=== PATIENT | male | born 2000 | race Caucasian/White ===

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

== ENCOUNTER 2022-04-25 13:02 | Day surgery (SDC) | payer OTHER ==
[~2022-04-25] VITALS: Ht 177.8 cm; Wt 62.7 kg
[2022-04-25 14:11] VITALS: BP 125/97; PULSE 68; TEMP 97.3
[2022-04-25 15:55] VITALS: BP 109/50; PULSE 77
--- NOTE | 2022-04-25 16:12 | NUR ---
1500 PT RETURNED TO BAY 3 VIA CART. TRANSFERRED TO CHAIR WITH RN ASSIST. ALERT AND ORIENTED. MONITORS ATTACHED, INTERVALS AND ALARMS SET. VSS. PT DENIES PAIN OR NAUSEA. FOOD AND DRINK PROVIDED. CALL LIGHT IN REACH. 1515 VSS. PT DENIES DISCOMFORT. TOLERATING FOOD AND DRINK WELL. 1530 VSS. PT DENIES DISCOMFORT. REVIEWED DISCHARGE INSTRUCTIONS AND EDUCATION MATERIAL, ANSWERED ALL QUESTIONS. IV REMOVED WITHOUT COMPLICATIONS. PT ALLOWED TO DRESS. 1550 TRANSFERRED PT VIA WHEELCHAIR TO PERSONAL VEHICLE TO BE DRIVEN HOME BY FATHER.
== END 2022-04-25 15:55 | disposition home or self-care (01) ==
LOC: SDCO 13:02
DX: K21.00 Gastro-esophageal reflux disease with esophagitis, without bleeding (principal); K29.30 Chronic superficial gastritis without bleeding; R19.7 Diarrhea, unspecified; R15.2 Fecal urgency; R19.5 Other fecal abnormalities; Z79.899 Other long term (current) drug therapy
CPT/HCPCS: J2704; J7030

== ENCOUNTER 2023-11-06 07:43 | Day surgery (SDC) | payer OTHER ==
[~2023-11-06] VITALS: Ht 180.3 cm; Wt 65.4 kg
[~2023-11-06 07:43] MED LIST: LR 1,000 ML IV SCH; Ondansetron 4 MG/2 ML VIAL IV PRN
[2023-11-06] MEDS ORDERED: PRINIVIL5 MG PO (08:03)
[2023-11-06] MEDS ORDERED: PROTONIX 40MG T40 MG PO (08:03)
[2023-11-06] MEDS ORDERED: SINGULAIR 110 MG/TAB PO (08:04)
[2023-11-06 08:37] VITALS: BP 124/82; PULSE 74; TEMP 97.7
--- NOTE | 2023-11-06 08:39 | NUR ---
0756 Patient ambulatory to bay 9 with a steady gait, breathing even and unlabored. Patient is alert and oriented. Consents reviewed and signed by patient. IV established. LR infusing via gravity at KVO. call light in reach. Warm blanket offered and refused.
[2023-11-06] MEDS ORDERED: Lidocaine PF 2% (20 MG/ML) 5 ML VIAL ONE (08:57)
[2023-11-06 09:30] VITALS: BP 117/68; PULSE 82; TEMP 97.5
[2023-11-06 09:45] VITALS: BP 115/83; PULSE 60
[2023-11-06 10:00] VITALS: BP 117/76; PULSE 68
--- NOTE | 2023-11-06 10:20 | NUR ---
0930 RETURNS TO ROOM 9 PER ART. AWAKE, ALERT. RESP UNLABORED. AMBULATES TO RECLINER WITH STANDBY ASSIST. DENIES NAUSEA, ABD/CHEST PAIN. VITAL SIGNS OBTAINED. CALL LIGHT SIDE. DAD IN ROOM 0945 TOLERATES PO JUIE WITHOUT NAUSEA. SWALLOWS WITHOUT DIFFICULTY 0950 DISCHARGE INSTRUCTIONS REVIEWED. PATIENT VERBALIZES UNDERSTANDING. COPY PROVIDED IN DISCHARGE FOLDER 9743 DR. GARCIA HERE TO VISIT WITH PATIENT 1010 IV DC'D. DRESSES SELF
== END 2023-11-06 10:20 | disposition home or self-care (01) ==
LOC: SDCO 07:43
DX: K92.1 Melena (principal); R10.13 Epigastric pain; R23.2 Flushing; R11.0 Nausea; F17.290 Nicotine dependence, other tobacco product, uncomplicated; Z79.899 Other long term (current) drug therapy
CPT/HCPCS: J2704; J7120